=== PATIENT | female | born 1970 | race Caucasian/White ===

== ENCOUNTER → 2017-01-17 | Outpatient (CLI) | payer BC ==
--- NOTE | 2017-01-18 07:37 | MAMMOGRAPHY REPORT ---
THIS REPORT HAS BEEN AMENDED. BILATERAL DIGITAL SCREENING MAMMOGRAM TOMOSYNTHESIS WITH CAD: 01/17/2017 CLINICAL HISTORY: Routine screening. Patient has no complaints. TECHNIQUE: Breast tomosynthesis in addition to standard 2D mammography was performed. Current study was also evaluated with a Computer Aided Detection (CAD) system. COMPARISON: No prior exams were available for comparison. BREAST COMPOSITION: The tissue of both breasts is heterogeneously dense, which may obscure small mas ses. FINDINGS: There are no suspicious masses, calcifications, or areas of architectural distortion noted in either breast. A few scattered punctate benign-appearing calcifications are noted bilaterally. IMPRESSION: ACR BI-RADS CATEGORY 0: INCOMPLETE EVALUATION: NEED ADDITIONAL IMAGING EVALUATION No mammographic evidence of malignancy in either breast. However, recommend comparison with prior ou tside mammograms to evaluate for any possible subtle changes. The prior outside mammograms will be r equested, and an addendum will be made when they are received and a comparison is made. Approximately 10% of breast cancers are not detected with mammography. A negative mammographic report should not delay biopsy if a clinically suggestive mass is present. Rimma Fuentes M.D. ah/:01/18/2017 07:32:23 Gl[facility] Bone Drier: Carola ANDERSON(R)(M), [facility] letter sent: Need Priors 0 BI-RADS Code: ACR BI-RADS Category 0: Incomplete Evaluation: Need Additional Imaging Evaluation AMENDMENT: 02/13/2017 Rimma Fuentes M.D. No prior outside images could be obtained for comparison. There is no mammographic evidence of malig abby in either breast. Recommend routine bilateral screening mammograms in one year. Amended BI-RADS: ACR BI-RADS Category 1: Negative letter sent: Normal 03/19
== END | disposition home or self-care (01) ==
LOC: C.MAMM 14:40
PROVIDERS: ATTEND Family Medicine Adult Medicine
DX: Z12.31 Encounter for screening mammogram for malignant neoplasm of breast (principal)